=== PATIENT | female | born 1980 | race Caucasian/White ===

== ENCOUNTER 2016-05-12 13:55 | Emergency (ER) | payer BC ==
[2016-05-12 15:05] LABS: HEMOGLOBIN 12.5 gm/dl (12.3-15.3); RED BLOOD COUNT 4.44 M/UL (4.00-5.10); WHITE BLOOD COUNT 7.9 K/UL (4.5-11.0)
[2016-05-12 15:28] LABS: BUN/CREATININE RATIO 13 (0-10)
== END 2016-05-12 18:50 | disposition home or self-care (01) ==
LOC: ER1 13:55
PROVIDERS: Emergency Medicine
DX: R29.810 Facial weakness (principal); R07.89 Other chest pain; R53.1 Weakness; I10 Essential (primary) hypertension; Z88.2 Allergy status to sulfonamides; Z79.899 Other long term (current) drug therapy
CPT/HCPCS: 36415; 70450; 70553; 71010; 80053; 82550; 82553; 83874; 84484; 85025; 85610; 85730; 93005; 99285; A9577

== ENCOUNTER → 2020-12-11 | Outpatient (CLI) | payer OTHER ==
[~2020-12-11] MED LIST: AUGMENTIN 875-1 EACH PO; BENTYL 20MG TAB20 MG PO; ZOFRAN4 MG PO
== END ==
LOC: KOH-I 11-22 13:30
DX: R22.1 Localized swelling, mass and lump, neck (principal)
CPT/HCPCS: 76536

== ENCOUNTER → 2021-04-12 | Outpatient (CLI) | payer OTHER | LOC: KOH-I 03-22 13:00 | DX: R22.1 Localized swelling, mass and lump, neck (principal) | CPT/HCPCS: 76536 ==

== ENCOUNTER → 2021-06-13 | Outpatient (CLI) | payer OTHER | LOC: US 14:23 | DX: K11.8 Other diseases of salivary glands (principal) | CPT/HCPCS: 76536 ==

== ENCOUNTER → 2021-06-18 | Outpatient (CLI) | payer OTHER | LOC: MAMO 08:30 | DX: N64.4 Mastodynia (principal); N64.89 Other specified disorders of breast | CPT/HCPCS: 76641; 77066; G0279 ==

== ENCOUNTER 2021-07-06 20:24 | Emergency (ER) | payer OTHER ==
[2021-07-06 21:11] LABS: HEMOGLOBIN 12.5 gm/dl (12.3-15.3); RED BLOOD COUNT 4.77 M/UL (4.00-5.10); WHITE BLOOD COUNT 11.9 K/UL (4.5-11.0)
[2021-07-06 21:30] LABS: BUN/CREATININE RATIO 18 (0-10)
== END 2021-07-07 02:24 | disposition home or self-care (01) ==
LOC: ER1 20:24
PROVIDERS: Physician Assistant Medical
DX: R51.9 Headache, unspecified (principal); E87.6 Hypokalemia; R42 Dizziness and giddiness; R11.0 Nausea; Z86.69 Personal history of other diseases of the nervous system and sense organs; Z88.2 Allergy status to sulfonamides
CPT/HCPCS: 70450; 80053; 84439; 84443; 85025; 93005; 99284

== ENCOUNTER 2021-10-09 16:10 | Emergency (ER) | payer OTHER ==
[2021-10-09 17:07] LABS: HEMOGLOBIN 12.7 gm/dl (12.3-15.3); RED BLOOD COUNT 4.81 M/UL (4.00-5.10); WHITE BLOOD COUNT 9.3 K/UL (4.5-11.0)
[2021-10-09 17:34] LABS: BUN/CREATININE RATIO 16 (0-10)
== END 2021-10-09 23:30 | disposition home or self-care (01) ==
LOC: ER1 16:10
PROVIDERS: Nurse Practitioner
DX: I10 Essential (primary) hypertension (principal); Z90.710 Acquired absence of both cervix and uterus; Z88.2 Allergy status to sulfonamides; Z79.899 Other long term (current) drug therapy; Z20.822 Contact with and (suspected) exposure to COVID-19
CPT/HCPCS: 0240U; 71045; 80053; 81001; 82550; 82553; 84484; 85025; 93005; 99285